=== PATIENT | male | born 1935 | race African-American/Black ===

== ENCOUNTER 2022-04-05 13:57 | Inpatient (IN) | payer MEDICARE ==
[2022-04-05 14:53] LABS: Hemoglobin 13.8 g/dL (13.5-17.5); Mean Corpuscular HGB CONC 33.6 g/dL (32.0-36.0); Mean Corpuscular Volume 89.3 fl (81.2-95.1); Mean Platelet Volume 10.6 fl (7.4-10.4); Platelet Count 129 10x3/uL (150-450); RBC Distribution Width 13.9 % (11.5-14.5)
[2022-04-05 14:54] LABS: INR-International Normal Ratio 1.2; PTT 27.8 sec (22.0-33.0); Prothrombin Time 12.9 sec (9.5-12.1)
[2022-04-05 14:58] LABS: ALT (SGPT) 8 U/L (8-55); AST (SGOT) 10 U/L (5-34); Albumin 3.4 g/dL (3.4-4.8); Alkaline Phosphatase 57 U/L (40-110); Anion Gap 12 mmol/L (10-20); BUN (Urea Nitrogen) 9 mg/dL (8.4-25.7); Bilirubin, Total 2.5 mg/dL (0.2-1.2); CK (CPK) 88 U/L (30-200); Calc. Creatinine Clearance 0 mL/min (70-130); Calcium 8.9 mg/dL (7.8-10.44); Carbon Dioxide 25 mmol/L (23-31); Chloride 106 mmol/L (98-107); Globulin 3.2 g/dL (2.4-3.5); Glucose 101 mg/dL (83-110); Potassium 3.4 mmol/L (3.5-5.1); Protein, Total 6.6 g/dL (5.8-8.1); Sodium 140 mmol/L (136-145)
[2022-04-05 15:21] LABS: CKMB 0.7 ng/mL (0-6.6)
[2022-04-05 15:43] LABS: Lymphocytes 29 % (21-51); Monocytes 9 % (0-10)
[2022-04-05 15:44] LABS: Diff Comment (RBC Morph SCRN) NORMAL; Neutrophil 62 % (42-75); Platelet Morphology Comment Appears Adequate
[2022-04-05] MEDS ORDERED: Furosemide 40 MG/4 ML VIAL ONE ×2 (15:50→16:16)
[2022-04-05] MEDS ORDERED: Aspirin Chewable 81 MG TAB ONE (15:50)
[2022-04-05] MEDS ORDERED: Senokot S 8.6-50 MG TAB PO PRN (17:01)
[2022-04-05] MEDS ORDERED: Bisacodyl 5 MG TAB PO PRN (17:01)
[2022-04-05] MEDS ORDERED: Docusate Calcium (SURFAK) 240 MG CAP PO PRN (17:49)
[2022-04-05 17:55] LABS: Troponin I 0.067 ng/mL (< 0.028)
[2022-04-05 18:04] VITALS: BMI 33.1
[2022-04-05] MEDS ORDERED: Potassium Chloride 20 MEQ TAB PO SCH (18:15)
[2022-04-05] MEDS: hydrALAZINE 25 MG TAB PO SCH (20:20)
[2022-04-05 20:44] LABS: Troponin I 0.063 ng/mL (< 0.028)
[2022-04-05] MEDS: Acetaminophen 325 MG TAB PO PRN (20:52)
[2022-04-05 23:04] LABS: Hemoglobin A1c 5.8 % (4.0-6.0)
[2022-04-06 05:59] LABS: ALT (SGPT) 6 U/L (8-55); AST (SGOT) 12 U/L (5-34); Albumin 3.2 g/dL (3.4-4.8); Alkaline Phosphatase 57 U/L (40-110); Anion Gap 15 mmol/L (10-20); BUN (Urea Nitrogen) 10 mg/dL (8.4-25.7); Bilirubin, Total 1.8 mg/dL (0.2-1.2); Calc. Creatinine Clearance 81 mL/min (70-130); Calcium 8.7 mg/dL (7.8-10.44); Carbon Dioxide 24 mmol/L (23-31); Cardiac Risk 3.9 (Less than 4.5); Chloride 106 mmol/L (98-107); Cholesterol 142 mg/dl (< 200 Desired); Globulin 3.3 g/dL (2.4-3.5); Glucose 97 mg/dL (83-110); HDL Cholesterol 36 mg/dL (>60 Neg Risk); LDL Cholesterol, Calculated 91 mg/dL; Potassium 3.7 mmol/L (3.5-5.1); Protein, Total 6.5 g/dL (5.8-8.1); Sodium 141 mmol/L (136-145); Triglycerides 76 mg/dL (Less than 150)
[2022-04-06] MEDS ORDERED: Furosemide 40 MG/4 ML VIAL SLOW IVP SCH (06:00)
[2022-04-06 06:22] LABS: Hemoglobin 14.2 g/dL (13.5-17.5); Mean Corpuscular HGB CONC 33.9 g/dL (32.0-36.0); Mean Corpuscular Hemoglobin 30.4 pg (27.0-33.0); Mean Corpuscular Volume 89.7 fl (81.2-95.1); Mean Platelet Volume 11.2 fl (7.4-10.4); Platelet Count 116 10x3/uL (150-450); RBC Distribution Width 13.9 % (11.5-14.5); Red Blood Cell (RBC) Count 4.67 10x6/uL (4.32-5.72); White Blood Cell (WBC) Count 5.6 10x3/uL (3.5-10.5)
[2022-04-06 06:38] LABS: MDiff Complete? YES; Manual Diff?? YES
[2022-04-06 07:11] LABS: Band 2 % (5-11); Eosinophils 3 % (0-10); Lymphocytes 27 % (21-51); Monocytes 14 % (0-10); Neutrophil 45 % (42-75); Reactive Lymphocytes 9 % (0-10)
[2022-04-06 07:12] LABS: Platelet Morphology Comment Appears Decreased
[2022-04-06] MEDS: hydrALAZINE 25 MG TAB PO SCH ×2 (08:44→20:46)
[2022-04-06] MEDS: Enoxaparin Sodium 40 MG/0.4 ML SYRINGE SC SCH (08:45)
[2022-04-06] MEDS: Tamsulosin HCl 0.4 MG CAP PO SCH (08:45)
[2022-04-06] MEDS: Aspirin 81 mg Enteric Coated Tablet PO SCH (08:45)
[2022-04-06] MEDS: Atorvastatin Calcium 10 MG TAB PO SCH (08:45)
[2022-04-06] MEDS: Lisinopril 5 MG TAB PO SCH (08:46)
[2022-04-06] MEDS ORDERED: Aspirin Chewable 81 MG TAB PO SCH (09:00)
[2022-04-06] MEDS: Acetaminophen 325 MG TAB PO PRN (20:46)
[2022-04-07 04:57] LABS: Anion Gap 15 mmol/L (10-20); BUN (Urea Nitrogen) 13 mg/dL (8.4-25.7); Calc. Creatinine Clearance 71 mL/min (70-130); Calcium 9.1 mg/dL (7.8-10.44); Carbon Dioxide 26 mmol/L (23-31); Chloride 104 mmol/L (98-107); Glucose 107 mg/dL (83-110); Potassium 3.6 mmol/L (3.5-5.1); Sodium 141 mmol/L (136-145)
[2022-04-07 05:03] LABS: Hemoglobin 14.7 g/dL (13.5-17.5); Mean Corpuscular HGB CONC 33.6 g/dL (32.0-36.0); Mean Corpuscular Hemoglobin 30.4 pg (27.0-33.0); Mean Corpuscular Volume 90.3 fl (81.2-95.1); Mean Platelet Volume 11.4 fl (7.4-10.4); Platelet Count 140 10x3/uL (150-450); RBC Distribution Width 13.9 % (11.5-14.5); Red Blood Cell (RBC) Count 4.84 10x6/uL (4.32-5.72); White Blood Cell (WBC) Count 5.1 10x3/uL (3.5-10.5)
[2022-04-07 06:44] LABS: MDiff Complete? YES
[2022-04-07 06:54] LABS: Eosinophils 1 % (0-10); Lymphocytes 38 % (21-51); Monocytes 23 % (0-10); Neutrophil 36 % (42-75); Reactive Lymphocytes 1 % (0-10)
[2022-04-07 06:56] LABS: Anisocytosis SLIGHT = 6-15 cells (100X) (0-5/hpf)
[2022-04-07 06:57] LABS: Platelet Morphology Comment Appears Decreased
[2022-04-07] MEDS: hydrALAZINE 25 MG TAB PO SCH (08:56)
[2022-04-07] MEDS: Enoxaparin Sodium 40 MG/0.4 ML SYRINGE SC SCH (08:56)
[2022-04-07] MEDS: Aspirin 81 mg Enteric Coated Tablet PO SCH (08:56)
[2022-04-07] MEDS: Lisinopril 5 MG TAB PO SCH (08:57)
[2022-04-07] MEDS: Tamsulosin HCl 0.4 MG CAP PO SCH (08:57)
[2022-04-07] MEDS: Atorvastatin Calcium 10 MG TAB PO SCH (08:57)
[2022-04-07] MEDS ORDERED: Furosemide 20 MG TAB PO SCH (09:00)
[2022-04-07] MEDS: Acetaminophen 325 MG TAB PO PRN (20:31)
[2022-04-08] MEDS: hydrALAZINE 25 MG TAB PO SCH (02:30)
[2022-04-08 04:42] LABS: Anion Gap 14 mmol/L (10-20); BUN (Urea Nitrogen) 16 mg/dL (8.4-25.7); Calc. Creatinine Clearance 72 mL/min (70-130); Calcium 8.7 mg/dL (7.8-10.44); Carbon Dioxide 27 mmol/L (23-31); Chloride 106 mmol/L (98-107); Glucose 105 mg/dL (83-110); Potassium 3.6 mmol/L (3.5-5.1); Sodium 143 mmol/L (136-145)
[2022-04-08 04:53] LABS: #Eosinphils 0.2 10x3/uL (0.0-0.5); #Monocytes 0.5 10x3/uL (0.0-1.1); #Neutrophils 1.3 10x3/uL (1.5-8.4); %Basophils 0.3 % (0.0-2.0); %Eosinophils 4.7 % (0.0-6.0); %Lymphocytes 44.5 % (18.0-47.0); %Monocytes 14.1 % (0.0-10.0); %Neutrophils 35.6 % (40.0-75.0); Hemoglobin 13.6 g/dL (13.5-17.5); Mean Corpuscular HGB CONC 32.9 g/dL (32.0-36.0); Mean Corpuscular Hemoglobin 30.1 pg (27.0-33.0); Mean Corpuscular Volume 91.6 fl (81.2-95.1); Mean Platelet Volume 10.7 fl (7.4-10.4); Platelet Count 157 10x3/uL (150-450); Red Blood Cell (RBC) Count 4.52 10x6/uL (4.32-5.72); White Blood Cell (WBC) Count 3.6 10x3/uL (3.5-10.5)
[2022-04-08] MEDS: Enoxaparin Sodium 40 MG/0.4 ML SYRINGE SC SCH (08:27)
[2022-04-08] MEDS: Lisinopril 5 MG TAB PO SCH (08:29)
[2022-04-08] MEDS: Tamsulosin HCl 0.4 MG CAP PO SCH (08:29)
[2022-04-08] MEDS: Aspirin 81 mg Enteric Coated Tablet PO SCH (08:29)
[2022-04-08] MEDS: Atorvastatin Calcium 10 MG TAB PO SCH (08:29)
[2022-04-08] MEDS: Clopidogrel Bisulfate 75 MG TAB PO SCH (08:29)
[2022-04-09 05:19] LABS: #Eosinphils 0.2 10x3/uL (0.0-0.5); #Monocytes 0.5 10x3/uL (0.0-1.1); #Neutrophils 1.5 10x3/uL (1.5-8.4); %Basophils 0.4 % (0.0-2.0); %Eosinophils 4.6 % (0.0-6.0); %Lymphocytes 49.5 % (18.0-47.0); %Monocytes 11.4 % (0.0-10.0); %Neutrophils 33.7 % (40.0-75.0); Hemoglobin 13.2 g/dL (13.5-17.5); Mean Corpuscular HGB CONC 31.5 g/dL (32.0-36.0); Mean Corpuscular Hemoglobin 29.3 pg (27.0-33.0); Mean Corpuscular Volume 93.1 fl (81.2-95.1); Mean Platelet Volume 10.9 fl (7.4-10.4); Platelet Count 153 10x3/uL (150-450); RBC Distribution Width 14.2 % (11.5-14.5); White Blood Cell (WBC) Count 4.6 10x3/uL (3.5-10.5)
[2022-04-09 05:49] LABS: Anion Gap 14 mmol/L (10-20); BUN (Urea Nitrogen) 17 mg/dL (8.4-25.7); Calc. Creatinine Clearance 86 mL/min (70-130); Calcium 8.6 mg/dL (7.8-10.44); Carbon Dioxide 25 mmol/L (23-31); Chloride 106 mmol/L (98-107); Glucose 86 mg/dL (83-110); Potassium 3.9 mmol/L (3.5-5.1); Sodium 141 mmol/L (136-145)
[2022-04-09] MEDS: Clopidogrel Bisulfate 75 MG TAB PO SCH (10:52)
[2022-04-09] MEDS: Atorvastatin Calcium 40 MG TAB PO SCH (10:52)
[2022-04-09] MEDS: Tamsulosin HCl 0.4 MG CAP PO SCH (10:52)
[2022-04-09] MEDS: Enoxaparin Sodium 40 MG/0.4 ML SYRINGE SC SCH (10:52)
[2022-04-09] MEDS: Lisinopril 5 MG TAB PO SCH (10:52)
[2022-04-09] MEDS: Aspirin 81 mg Enteric Coated Tablet PO SCH (10:52)
[2022-04-09] MEDS: Torsemide 20 MG TAB PO SCH (10:53)
[2022-04-09] MEDS ORDERED: Lorazepam 1 MG TAB PO PRN (21:11)
[2022-04-09] MEDS ORDERED: Dexamethasone 20 MG/5 ML VIAL SLOW IVP SCH (21:30)
[2022-04-09] MEDS ORDERED: Lorazepam 2 MG/ML VIAL IM SCH (22:15)
[2022-04-10 05:08] LABS: Bilirubin Neg (Negative); Blood, Urine 50 (Negative); Clarity Clear (Clear); Glucose, Urine (Dipstick) Normal (Negative); Ketone, Urine Negative (Negative); Leukocyte Negative (Negative); Nitrite Negative (Negative); Protein, Urine (Dipstick) 15 mg/dl (Neg-Trace); Urobilinogen Normal mg/dL (Less than 2)
[2022-04-10 05:10] LABS: #Eosinphils 0.1 10x3/uL (0.0-0.5); #Monocytes 0.6 10x3/uL (0.0-1.1); #Neutrophils 2.5 10x3/uL (1.5-8.4); %Basophils 0.4 % (0.0-2.0); %Eosinophils 2.3 % (0.0-6.0); %Lymphocytes 32.1 % (18.0-47.0); %Neutrophils 51.6 % (40.0-75.0); Hemoglobin 13.2 g/dL (13.5-17.5); Mean Corpuscular HGB CONC 32.8 g/dL (32.0-36.0); Mean Corpuscular Hemoglobin 30.1 pg (27.0-33.0); Mean Corpuscular Volume 91.6 fl (81.2-95.1); Mean Platelet Volume 11.1 fl (7.4-10.4); Platelet Count 168 10x3/uL (150-450); Red Blood Cell (RBC) Count 4.39 10x6/uL (4.32-5.72); White Blood Cell (WBC) Count 4.8 10x3/uL (3.5-10.5)
[2022-04-10 05:20] LABS: Bacteria/HPF None Seen HPF (None Seen); RBC/HPF 0-3 HPF (0-3); Renal Epithelial 0-3 HPF (None Seen); Squamous Epithelial 0-3 HPF (0-3); Urine Culture Reflex No No; WBC/HPF None Seen HPF (0-3)
[2022-04-10 05:25] LABS: Anion Gap 13 mmol/L (10-20); BUN (Urea Nitrogen) 19 mg/dL (8.4-25.7); Calc. Creatinine Clearance 77 mL/min (70-130); Calcium 8.8 mg/dL (7.8-10.44); Carbon Dioxide 26 mmol/L (23-31); Chloride 107 mmol/L (98-107); Glucose 111 mg/dL (83-110); Potassium 4.1 mmol/L (3.5-5.1); Sodium 142 mmol/L (136-145)
[2022-04-10] MEDS: Aspirin 81 mg Enteric Coated Tablet PO SCH (09:23)
[2022-04-10] MEDS: Clopidogrel Bisulfate 75 MG TAB PO SCH (09:23)
[2022-04-10] MEDS: Lisinopril 5 MG TAB PO SCH (09:23)
[2022-04-10] MEDS: Atorvastatin Calcium 40 MG TAB PO SCH (09:24)
[2022-04-10] MEDS: Tamsulosin HCl 0.4 MG CAP PO SCH (09:24)
[2022-04-10] MEDS: Enoxaparin Sodium 40 MG/0.4 ML SYRINGE SC SCH (09:24)
[2022-04-10] MEDS: Torsemide 20 MG TAB PO SCH (09:33)
[2022-04-11 05:13] LABS: #Eosinphils 0.2 10x3/uL (0.0-0.5); #Monocytes 0.5 10x3/uL (0.0-1.1); #Neutrophils 1.7 10x3/uL (1.5-8.4); %Basophils 0.5 % (0.0-2.0); %Eosinophils 4.7 % (0.0-6.0); %Lymphocytes 45.3 % (18.0-47.0); %Monocytes 10.5 % (0.0-10.0); %Neutrophils 38.3 % (40.0-75.0); Hemoglobin 13.6 g/dL (13.5-17.5); Mean Corpuscular HGB CONC 32.5 g/dL (32.0-36.0); Mean Corpuscular Hemoglobin 29.4 pg (27.0-33.0); Mean Corpuscular Volume 90.5 fl (81.2-95.1); Mean Platelet Volume 10.6 fl (7.4-10.4); Platelet Count 166 10x3/uL (150-450); RBC Distribution Width 14.2 % (11.5-14.5); Red Blood Cell (RBC) Count 4.63 10x6/uL (4.32-5.72); White Blood Cell (WBC) Count 4.3 10x3/uL (3.5-10.5)
[2022-04-11 05:26] LABS: Anion Gap 12 mmol/L (10-20); BUN (Urea Nitrogen) 20 mg/dL (8.4-25.7); Calc. Creatinine Clearance 82 mL/min (70-130); Calcium 8.7 mg/dL (7.8-10.44); Carbon Dioxide 26 mmol/L (23-31); Chloride 108 mmol/L (98-107); Glucose 101 mg/dL (83-110); Potassium 4.2 mmol/L (3.5-5.1); Sodium 142 mmol/L (136-145)
[2022-04-11] MEDS: Aspirin 81 mg Enteric Coated Tablet PO SCH (11:22)
[2022-04-11] MEDS: Clopidogrel Bisulfate 75 MG TAB PO SCH (11:22)
[2022-04-11] MEDS: Enoxaparin Sodium 40 MG/0.4 ML SYRINGE SC SCH (11:23)
[2022-04-11] MEDS: Tamsulosin HCl 0.4 MG CAP PO SCH (11:23)
[2022-04-11] MEDS: Lisinopril 5 MG TAB PO SCH (11:23)
[2022-04-11] MEDS: Atorvastatin Calcium 40 MG TAB PO SCH (11:23)
[2022-04-11] MEDS: Torsemide 20 MG TAB PO SCH (11:23)
[2022-04-12 04:57] LABS: Anion Gap 14 mmol/L (10-20); BUN (Urea Nitrogen) 22 mg/dL (8.4-25.7); Calc. Creatinine Clearance 71 mL/min (70-130); Calcium 8.7 mg/dL (7.8-10.44); Carbon Dioxide 26 mmol/L (23-31); Chloride 105 mmol/L (98-107); Glucose 96 mg/dL (83-110); Potassium 4.3 mmol/L (3.5-5.1); Sodium 141 mmol/L (136-145)
[2022-04-12 05:03] LABS: #Eosinphils 0.2 10x3/uL (0.0-0.5); #Monocytes 0.5 10x3/uL (0.0-1.1); #Neutrophils 2.1 10x3/uL (1.5-8.4); %Basophils 0.4 % (0.0-2.0); %Eosinophils 3.4 % (0.0-6.0); %Lymphocytes 40.3 % (18.0-47.0); %Monocytes 10.3 % (0.0-10.0); %Neutrophils 45.4 % (40.0-75.0); Hemoglobin 13.8 g/dL (13.5-17.5); Mean Corpuscular HGB CONC 32.9 g/dL (32.0-36.0); Mean Corpuscular Hemoglobin 29.7 pg (27.0-33.0); Mean Corpuscular Volume 90.5 fl (81.2-95.1); Mean Platelet Volume 9.9 fl (7.4-10.4); Platelet Count 164 10x3/uL (150-450); RBC Distribution Width 14.2 % (11.5-14.5); Red Blood Cell (RBC) Count 4.64 10x6/uL (4.32-5.72); White Blood Cell (WBC) Count 4.7 10x3/uL (3.5-10.5)
[2022-04-12] MEDS: Enoxaparin Sodium 40 MG/0.4 ML SYRINGE SC SCH (09:21)
[2022-04-12] MEDS: Tamsulosin HCl 0.4 MG CAP PO SCH (09:21)
[2022-04-12] MEDS: Aspirin 81 mg Enteric Coated Tablet PO SCH (09:21)
[2022-04-12] MEDS: Lisinopril 5 MG TAB PO SCH (09:21)
[2022-04-12] MEDS: Clopidogrel Bisulfate 75 MG TAB PO SCH (09:21)
[2022-04-12] MEDS: Atorvastatin Calcium 40 MG TAB PO SCH (09:22)
[2022-04-12] MEDS: Torsemide 20 MG TAB PO SCH (09:22)
[2022-04-12 17:02] VITALS: BP 134/80; TEMP 97
== END 2022-04-12 17:00 | disposition home health service (06) | DRG 69 ==
LOC: SUATTDRO 13:57 → CSHERS 13:57 → INTOOBSV 17:34 → CSHTELE 17:34 → OBSVTOIN 04-08 09:24
PROVIDERS: ADMIT Hospitalist; ATTEND Internal Medicine
PROC: 4A10X4Z Monitoring of Central Nervous Electrical Activity, External Approach (ICD-10-PCS; principal; 2022-04-06)
DX: G45.9 Transient cerebral ischemic attack, unspecified (principal); M19.90 Unspecified osteoarthritis, unspecified site; I10 Essential (primary) hypertension; E78.5 Hyperlipidemia, unspecified; E87.6 Hypokalemia; N40.0 Benign prostatic hyperplasia without lower urinary tract symptoms; Z20.822 Contact with and (suspected) exposure to COVID-19; D32.0 Benign neoplasm of cerebral meninges; R41.0 Disorientation, unspecified; Z86.73 Personal history of transient ischemic attack (TIA), and cerebral infarction without residual deficits; Z88.8 Allergy status to other drugs, medicaments and biological substances; Z79.82 Long term (current) use of aspirin; Z79.899 Other long term (current) drug therapy
CPT/HCPCS: 36415; 70450; 70551; 71045; 80048; 80053; 80061; 81001; 82550; 82553; 83036; 83880; 84443; 84484; 85025; 85610; 85730; 87086; 93005; 93306; 94760; 95819; 95957; 96372; 96374; 96376; G0378; J1650; J1940; J2060; U0003; U0005